=== PATIENT | female | born 1985 | race Caucasian/White ===

== ENCOUNTER 2022-09-26 01:40 | Emergency (ER) | payer BC, SELFPAY ==
[2022-09-26] MEDS ORDERED: Ketorolac Tromethamine 30 MG/ML VIAL ONE (01:59)
[2022-09-26] MEDS ORDERED: Morphine 4 MG/ML VIAL ONE (03:12)
[2022-09-26] MEDS ORDERED: Ondansetron PF 4 MG/2 ML Vial ONE (03:12)
== END 2022-09-26 04:07 ==
LOC: CSHERS 01:40
DX: M54.50 Low back pain, unspecified (principal); R53.1 Weakness; R20.0 Anesthesia of skin; R32 Unspecified urinary incontinence; E78.5 Hyperlipidemia, unspecified
CPT/HCPCS: 96372; 96374; 96375; J1885; J2270; J2405